=== PATIENT | male | born 1980 | race Caucasian/White ===

== ENCOUNTER 2018-04-03 11:08 | Emergency (ER) | payer BC ==
[2018-04-03] MEDS ORDERED: ONDANSETRON DISINTEGRATING 4 MG TAB PO ONE (11:46)
[2018-04-03] MEDS ORDERED: MECLIZINE HCL 25 MG TAB PO ONE (11:55)
--- NOTE | 2018-04-03 11:58 | EDPHY ---
H & P Stated Complaint: Syncope/dizzy Time Seen by Provider: 04/03/18 11:46 HPI/ROS: CHIEF COMPLAINT: Spinning sensation HISTORY OF PRESENT ILLNESS: 37-year-old male presents with vertigo. He awoke this morning with a vague and mild spinning sensation. 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 He is not sure whether he passed out or not, but recalls someone shaking him and then having difficulty standing back up. He does not think he hit his head. He continues to have a room spinning sensation. No other neurologic symptoms. No recent head trauma or chiropractic manipulation. REVIEW OF SYSTEMS: complete 10 point ROS reviewed and is negative except for the noted elements in the HPI Source: Patient - Personal History Current Tetanus/Diphtheria Vaccine: Yes - Medical/Surgical History Hx Asthma: No Hx Chronic Respiratory Disease: No Hx Diabetes: No Hx Cardiac Disease: No Hx Renal Disease: No Hx Cirrhosis: No Hx Alcoholism: No Other PMH: denies - Social History Smoking Status: Never smoked Alcohol Use: Sober Drug Use: None - Physical Exam Exam: General Appearance: Alert, pleasant Eyes: Pupils equal and round, no conjunctival pallor or injection, horizontal nystagmus, fast component to the left ENT, Mouth: Mucous membranes moist Neck: Normal inspection Respiratory: Lungs are clear to auscultation Cardiovascular: Regular rate and rhythm Gastrointestinal: Abdomen is soft and nontender Neurological: Alert, oriented x3, cranial nerves II through XII intact, motor 5 /5, sensory intact to light touch, gait not assessed Skin: Warm and dry Extremities: Normal inspection Psychiatric: Mood and affect normal Constitutional: Initial Vital Signs Temperature (C) 36.4 C 04/03/18 11:11 Heart Rate 70 04/03/18 11:11 Respiratory Rate 18 04/03/18 11:11 Blood Pressure 139/85 H 04/03/18 11:11 O2 Sat (%) 95 04/03/18 11:11 O2 Delivery Mode Room Air Allergies/Adverse Reactions: amoxicillin [Amoxicillin] Allergy (Unknown, Verified 04/03/18 11:14) Home Medications: Medication Instructions Recorded Albuterol [Albuterol HFA] 2 puffs IH QID #1 mdi 05/06/09 PREDNISONE 20 mg PO DAILY #15 05/06/09 Medical Decision Making - Diagnostics EKG Interpretation: EKG interpreted by me reveals sinus rhythm, rate 59, diffuse T-wave flattening. Interpretation: Borderline EKG ED Course/Re-evaluation: This patient presents with peripheral vertigo. There are no concerning signs or symptoms suggestive of a central etiology of vertigo. Neurologic exam is normal. EKG reveals no evidence of ischemia or dysrhythmia. Zofran 4 mg ODT, followed by meclizine 25 mg orally given. Patient asymptomatic after medications. Neurologic exam remains normal. Labs normal. Will d/c home. Able to walk with a steady gait. Discharge instructions given. Differential Diagnosis: Dizziness including but not limited to peripheral and central causes of vertigo , orthostatic causes including dehydration, and blood loss. - Data Points Laboratory Results: Laboratory Results 04/03/18 12:00 04/03/18 12:00 04/03/18 04/03/18 12:00 12:00 WBC 7.44 10^3/uL 10^3/uL (3.80-9.50) RBC 5.18 10^6/uL 10^6/uL (4.40-6.38) Hgb 14.9 g/dL g/dL (13.7-17.5) Hct 42.4 % % (40.0-51.0) MCV 81.9 fL fL (81.5-99.8) MCH 28.8 pg pg (27.9-34.1) MCHC 35.1 g/dL g/dL (32.4-36.7) RDW 12.5 % % (11.5-15.2) Plt Count 225 10^3/uL 10^3/uL (150-400) MPV 10.0 fL fL (8.7-11.7) Neut % (Auto) 84.0 % H % (39.3-74.2) Lymph % (Auto) 10.2 % L % (15.0-45.0) [place] % (Auto) 4.8 % % (4.5-13.0) Eos % (Auto) 0.3 % L % (0.6-7.6) Baso % (Auto) 0.4 % % (0.3-1.7) Nucleat RBC Rel Count 0.0 % % (0.0-0.2) Absolute Neuts (auto) 6.25 10^3/uL 10^3/uL (1.70-6.50) Absolute Lymphs (auto) 0.76 10^3/uL L 10^3/uL (1.00-3.00) Absolute Monos (auto) 0.36 10^3/uL 10^3/uL (0.30-0.80) Absolute Eos (auto) 0.02 10^3/uL L 10^3/uL (0.03-0.40) Absolute Basos (auto) 0.03 10^3/uL 10^3/uL (0.02-0.10) Absolute Nucleated RBC 0.00 10^3/uL 10^3/uL (0-0.01) Immature Gran % 0.3 % % (0.0-1.1) Immature Gran # 0.02 10^3/uL 10^3/uL (0.00-0.10) Sodium 139 mEq/L mEq/L (135-145) Potassium 4.0 mEq/L mEq/L (3.3-5.0) Chloride 105 mEq/L mEq/L (97-110) Carbon Dioxide 23 mEq/l mEq/l (22-31) Anion Gap 11 mEq/L mEq/L (6-14) BUN 15 mg/dL mg/dL (7-23) Creatinine 0.8 mg/dL mg/dL (0.7-1.3) Estimated GFR > 60 Glucose 117 mg/dL H mg/dL (70-100) Calcium 9.6 mg/dL mg/dL (8.5-10.4) Medications Given: Discontinued Medications Meclizine HCl (Meclizine Hcl) 25 mg PO EDNOW ONE Stop: 04/03/18 11:56 Last Admin: 04/03/18 12:26 Dose: 25 mg Ondansetron HCl (Zofran Odt) 4 mg PO EDNOW ONE Stop: 04/03/18 11:47 Last Admin: 04/03/18 11:51 Dose: 4 mg Departure - Departure Disposition: Home, Routine, Self-Care Clinical Impression: Vertigo Condition: Good Instructions: Vertigo (ED) Additional Instructions: Take meclizine 1 tablet every 8 hr as needed for vertigo. Return for worsening symptoms or any concerns. Referrals: Sandrita Laurent MD [Primary Care Provider] - As per Instructions
[2018-04-03 12:15] LABS: PLATELET COUNT 225 10^3/uL (150-400)
[2018-04-03 13:41] VITALS: BP 131/82
--- NOTE | 2018-04-03 15:08 | CPEKG ---
Test Reason : OPEN Blood Pressure : / mmHG Vent. Rate : 059 BPM Atrial Rate : 058 BPM P-R Int : 167 ms QRS Dur : 089 ms QT Int : 382 ms P-R-T Axes : 042 062 043 degrees QTc Int : 379 ms Sinus rhythm Borderline T wave abnormalities Confirmed by Naya Arteaga ([id number]) on 04/03/2018 3:08:16 PM Referred By: Confirmed By:Naya Arteaga
== END 2018-04-03 13:41 | disposition home or self-care (01) ==
DX: R42 Dizziness and giddiness (principal)